=== PATIENT | female | born 1975 | race Caucasian/White ===

== ENCOUNTER 2020-08-05 05:14 | Emergency (ER) | payer SELFPAY ==
[~2020-08-05] VITALS: Ht 172.7 cm; Wt 73.0 kg
[2020-08-05 07:37] VITALS: BP 109/68
== END 2020-08-05 07:37 | disposition home or self-care (01) | DRG 392 ==
LOC: ED 05:14
DX: R11.2 Nausea with vomiting, unspecified (principal)